=== PATIENT | male | born 1940 | race Caucasian/White ===

== ENCOUNTER 2020-07-02 08:34 | Outpatient (CLI) | payer MEDICARE, MEDICAID ==
[~2020-07-02 08:34] MED LIST: NOR5T PO; NORCO10T PO; TELM80TA9 PO
== END 2020-07-02 09:16 | disposition home or self-care (01) ==
LOC: WOUND CARE 08:34 → EDSTATUS 09:00 → WOUND CARE 09:16
PROVIDERS: ATTEND Nurse Practitioner
DX: L98.491 Non-pressure chronic ulcer of skin of other sites limited to breakdown of skin (principal); L03.115 Cellulitis of right lower limb; L03.116 Cellulitis of left lower limb; I48.19 Other persistent atrial fibrillation; M19.90 Unspecified osteoarthritis, unspecified site; M86.9 Osteomyelitis, unspecified; I12.9 Hypertensive chronic kidney disease with stage 1 through stage 4 chronic kidney disease, or unspecified chronic kidney disease; N18.9 Chronic kidney disease, unspecified; E87.1 Hypo-osmolality and hyponatremia; M86.8X7 Other osteomyelitis, ankle and foot; E66.9 Obesity, unspecified; Z68.44 Body mass index [BMI] 60.0-69.9, adult
CPT/HCPCS: G0463

== ENCOUNTER 2020-07-08 12:05 | Outpatient (CLI) | payer MEDICARE, MEDICAID | END 2020-07-08 14:36 | disposition home or self-care (01) | LOC: WOUND CARE 12:05 | PROVIDERS: ATTEND Nurse Practitioner | DX: L98.491 Non-pressure chronic ulcer of skin of other sites limited to breakdown of skin (principal); L03.115 Cellulitis of right lower limb; L03.116 Cellulitis of left lower limb; I48.19 Other persistent atrial fibrillation; M19.90 Unspecified osteoarthritis, unspecified site; M86.9 Osteomyelitis, unspecified; I12.9 Hypertensive chronic kidney disease with stage 1 through stage 4 chronic kidney disease, or unspecified chronic kidney disease; N18.9 Chronic kidney disease, unspecified; E87.1 Hypo-osmolality and hyponatremia; M86.8X7 Other osteomyelitis, ankle and foot; E66.9 Obesity, unspecified; Z68.44 Body mass index [BMI] 60.0-69.9, adult | CPT/HCPCS: 93922; 93925; G0463 ==

== ENCOUNTER 2020-07-17 10:22 | Outpatient (CLI) | payer MEDICARE, MEDICAID | END 2020-07-17 11:57 | disposition home or self-care (01) | LOC: WOUND CARE 10:22 | PROVIDERS: ATTEND Nurse Practitioner | DX: L03.116 Cellulitis of left lower limb (principal); L03.115 Cellulitis of right lower limb; L98.491 Non-pressure chronic ulcer of skin of other sites limited to breakdown of skin; I48.19 Other persistent atrial fibrillation; M19.90 Unspecified osteoarthritis, unspecified site; I12.9 Hypertensive chronic kidney disease with stage 1 through stage 4 chronic kidney disease, or unspecified chronic kidney disease; N18.9 Chronic kidney disease, unspecified; E87.1 Hypo-osmolality and hyponatremia; M86.8X7 Other osteomyelitis, ankle and foot; E66.9 Obesity, unspecified; Z68.44 Body mass index [BMI] 60.0-69.9, adult | CPT/HCPCS: 93970; G0463 ==

== ENCOUNTER → 2020-07-18 | Day surgery (SDC) | payer MEDICARE, MEDICAID | END | disposition home or self-care (01) | LOC: WOUND CARE 11:40 | PROVIDERS: ATTEND Nurse Practitioner | DX: L98.491 Non-pressure chronic ulcer of skin of other sites limited to breakdown of skin (principal); L03.115 Cellulitis of right lower limb; L03.116 Cellulitis of left lower limb; I48.19 Other persistent atrial fibrillation; M19.90 Unspecified osteoarthritis, unspecified site; M86.9 Osteomyelitis, unspecified; I12.9 Hypertensive chronic kidney disease with stage 1 through stage 4 chronic kidney disease, or unspecified chronic kidney disease; N18.9 Chronic kidney disease, unspecified; E87.1 Hypo-osmolality and hyponatremia; M86.8X7 Other osteomyelitis, ankle and foot; E66.9 Obesity, unspecified; Z68.44 Body mass index [BMI] 60.0-69.9, adult | CPT/HCPCS: G0463 ==

== ENCOUNTER 2020-07-24 10:43 | Outpatient (CLI) | payer MEDICARE, MEDICAID | END 2020-07-24 11:26 | disposition home or self-care (01) | LOC: WOUND CARE 10:43 | PROVIDERS: ATTEND Nurse Practitioner | DX: L03.116 Cellulitis of left lower limb (principal); L03.115 Cellulitis of right lower limb; L98.491 Non-pressure chronic ulcer of skin of other sites limited to breakdown of skin; I48.19 Other persistent atrial fibrillation; M19.90 Unspecified osteoarthritis, unspecified site; I12.9 Hypertensive chronic kidney disease with stage 1 through stage 4 chronic kidney disease, or unspecified chronic kidney disease; N18.9 Chronic kidney disease, unspecified; E87.1 Hypo-osmolality and hyponatremia; M86.8X7 Other osteomyelitis, ankle and foot; E66.9 Obesity, unspecified; Z68.44 Body mass index [BMI] 60.0-69.9, adult | CPT/HCPCS: G0463 ==

== ENCOUNTER 2020-08-22 12:11 | Outpatient (CLI) | payer MEDICARE, MEDICAID | END 2020-08-22 13:00 | disposition home or self-care (01) | LOC: WOUND CARE 12:11 | PROVIDERS: ATTEND Nurse Practitioner | DX: L03.116 Cellulitis of left lower limb (principal); L03.115 Cellulitis of right lower limb; L98.491 Non-pressure chronic ulcer of skin of other sites limited to breakdown of skin; I48.19 Other persistent atrial fibrillation; M19.90 Unspecified osteoarthritis, unspecified site; I12.9 Hypertensive chronic kidney disease with stage 1 through stage 4 chronic kidney disease, or unspecified chronic kidney disease; N18.9 Chronic kidney disease, unspecified; E87.1 Hypo-osmolality and hyponatremia; M86.8X7 Other osteomyelitis, ankle and foot; E66.9 Obesity, unspecified; Z68.44 Body mass index [BMI] 60.0-69.9, adult | CPT/HCPCS: G0463 ==

== ENCOUNTER 2025-05-17 13:40 | Outpatient (CLI) | payer MEDICARE, MEDICAID ==
[~2025-05-17 13:40] MED LIST changes: +FURO-150 PO; +LEVO25TA7 PO; +METO25TA6 PO
--- NOTE | 2025-05-17 15:12 | VASCULAR REPORT ---
Bilateral lower extremity venous duplex Clinical History: Comparison: None Technique: Duplex Doppler evaluation of the deep venous systems of both lower extremities from the common femora l veins to the popliteal veins including color Doppler and spectral/pulsed waveform analysis was perf ormed. Findings: RIGHT SIDE: The common femoral vein demonstrates appropriate compressibility and waveform variability. There is compressibility/patency of the great saphenous vein at the proximal thigh. The femoral vein demonstrates appropriate compressibility and waveform variability. The deep femoral vein demonstrates appropriate compressibility and waveform variability. The popliteal vein demonstrates appropriate compressibility and waveform variability. There is normal compressibility at the tibioperoneal trunk. LEFT SIDE: The common femoral vein demonstrates appropriate compressibility and waveform variability. There is compressibility/patency of the great saphenous vein at the proximal thigh. The femoral vein demonstrates appropriate compressibility and waveform variability. The deep femoral vein demonstrates appropriate compressibility and waveform variability. The popliteal vein demonstrates appropriate compressibility and waveform variability. There is normal compressibility at the tibioperoneal trunk. Impression: No right or left femoropopliteal venous thrombosis.
== END 2025-05-17 23:59 | disposition home or self-care (01) ==
LOC: VAS 13:40
PROVIDERS: ATTEND Family Medicine
DX: M79.89 Other specified soft tissue disorders (principal)
CPT/HCPCS: 93970

== ENCOUNTER 2025-06-07 12:30 | Emergency (ER) | payer MEDICARE, MEDICAID ==
[~2025-06-07] VITALS: Ht 160 cm; Wt 101.3 kg
--- NOTE | 2025-06-07 12:56 | ELECTROCARDIOGRAPH REPORT ---
[facility] Test Date: 2025-06-07 Test Time: 12:55:10 Pat Name: MYNOR MITCHELL Department: EMERGENCY ROOM Patient ID: [id number] Room: Gender: M Fiber Optic Technician: ARCHIE : 1940 Requested By: NIKKI NEIL Order Number: [id number] Reading MD: Dr. Sean Dia Measurements Intervals [place] Rate: 83 P: 0 OK: 144 QRS: 30 QRSD: 88 T: 37 QT: 429 QTc: 505 Interpretive Statements Atrial-paced complexes Ventricular premature complex Prolonged QT interval Electronically Signed On 06-08-2025 19:28:[address] Sean Dia Please click the below link to view image of tracing.
--- NOTE | 2025-06-07 13:22 | Physician Documentation ---
History of Present Illness ~ Chief Complaint: Leg Laceration Stated Complaint: LEG LAC Time Seen by MD: 13:09 Primary Medical Doctor: sandrine Source: patient, family Mode of Arrival: POV Exam Limitations: no limitations HPI Patient who was getting out of the car and caught the edge of the car door on his left andrews. Here with a laceration. Unknown last tetanus shot. Tetanus Within 5 Years: Yes Medication Reconciliation Allergies: Coded Allergies: No Known Allergies (Unverified , 01/27/25) Scheduled Amlodipine Besylate (Amlodipine Besylate), 5 MG PO BID Furosemide (Lasix), 20 MG PO BID Hydrocodone Bit/Acetaminophen 10/325 MG* ([place] 10/325 MG*), 1 TAB PO PRN, (Reported) Levothyroxine Sodium (Levothyroxine Sodium), 1 TAB PO QAM Metoprolol Tartrate (Metoprolol Tartrate), 1 TAB PO BID Telmisartan (Telmisartan), 1 TAB PO DAILY Past Medical History Past Medical History: Atrial Fibrillation, Hypertension, Cellulitis Past Surgical History: orthopedic surgeries, other Alcohol Use: Occasionally Drug Use: none Lives In: Home Review of Systems All Other Systems at this time: Reviewed and Negative Physical Exam Vital Signs: Temperature: 98.0, Source: Temporal, Heart Rate: 80, Respiratory Rate: 12, BP: 159/92, Pulse Oximetry: 92, Weight: 101.300 Oxygen Flow Rate: 0 General Appearance: alert, WD/WN Cardiovascular: regular rate, rhythm, no murmur Respiratory: normal breath sounds Extremities Left andrews: 1 cm abrasion wound with a skin removed Skin: normal color, warm/dry Neurologic: oriented x4, memory intact Psychiatric: normal mood/affect Progress Progress Note Patient with of wound where the skin was essentially removed versus a laceration. Nothing to repair. Wound was cleansed and covered. This will heal by secondary intention. He is to wash it daily and then dry and cover. Return if new or worsening symptoms or sign of infection. Tdap given in the ED. Results/Orders Results/Orders Completed Orders - NIKKI NEIL MD Electrocardiogram (06/07/25 12:37) Tetanus/Pertuss/Diph Acell/Pf (Boostrix (06/07/25 13:20) Medications Received in ER Medications (Trade) Dose Ordered Sig/Marvin Route PRN Reason Start Time Stop Time Status Last Admin Dose Admin (Boostrix vaccine syringe) 0.5 ml ONCE ONCE IMVAC 06/07/25 13:20 06/07/25 13:21 DC 06/07/25 13:32 0.5 ML Vital Signs 06/07/25 06/07/25 12:41 13:45 Temp 98.0 98.0 Pulse 80 89 Resp 12 16 B/P (MAP) 159/92 121/74 Pulse Ox 92 96 O2 Flow Rate 0 Departure Impression: Primary Impression: Laceration of left leg Qualified Codes: S81.812A - Laceration without foreign body, left lower leg, initial encounter Condition: Stable Additional Instructions: Cleanse the wound daily with warm soapy water. Wait until it is dry and then cover it to keep it clean. Follow up if any sign of infection. Referrals: NO PRIMARY CARE PROVIDER (PCP) Education Educated: Patient, Family Educated regarding: diagnosis, treatment, need for follow up Signature Scribe Signature: no scribe used Attestation: no scribe used NIKKI NEIL MD Jun 07, 2025 13:22
[2025-06-07] MEDS: TETanus/Pertussis (Acell)/Diphther VAC/PF (Tdap-Adult) 0.5ml syringe IMVAC ONE (13:32)
[2025-06-07 13:45] VITALS: BP 121/74; PULSE 89; RESP 16; TEMP 98; O2SAT 96
== END 2025-06-07 13:51 | disposition home or self-care (01) ==
LOC: ER 12:30
DX: S81.812A Laceration without foreign body, left lower leg, initial encounter (principal); I10 Essential (primary) hypertension; I48.91 Unspecified atrial fibrillation; W23.0XXA Caught, crushed, jammed, or pinched between moving objects, initial encounter; Y93.89 Activity, other specified; Y92.89 Other specified places as the place of occurrence of the external cause; Y99.8 Other external cause status
CPT/HCPCS: 90715; 93005; 99283; A6402; A6446; A6449; G0008; 90471

== ENCOUNTER 2025-09-30 12:07 | Emergency (ER) | payer MEDICARE, MEDICAID ==
[~2025-09-30] VITALS: Ht 167.6 cm; Wt 90.0 kg
[2025-09-30 12:12] VITALS: TEMP 98.4
[2025-09-30 13:06] VITALS: O2SAT 95
[2025-09-30 15:17] LABS: MEAN PLATELET VOLUME 7.7 FL (7.4-10.4); RED CELL DISTRIBUTION WIDTH 18.5 % (11.5-14.5)
[2025-09-30 15:21] LABS: CREATININE 1.14 MG/DL (0.60-1.10); TOTAL CARBON DIOXIDE 24.0 MMOL/L (24-32); eCRCL 44 ML/MIN; eGFR 61 ML/MIN
--- NOTE | 2025-09-30 15:29 | Physician Documentation ---
History of Present Illness ~ Chief Complaint: Catheter Problem Stated Complaint: CATHETER ISSUES Time Seen by MD: 13:11 Primary Medical Doctor: sandrine Mode of Arrival: EMS, Stretcher HPI Patient referred to the emergency department for evaluation of Gordon catheter. Presents to the emergency department with Gordon catheter in place yet no leg bag. Patient reports that he does not want the catheter in place yet his obvious suprapubic distention. He has been no reported fever or nausea or vomiting. He has secondary complaint of lower leg discomfort. Patient was a resident of [facility]. Apparently he was just discharged in his referral to the emergency department in his by it the home health care worker? Patient is adamant about not requiring the catheter and reports that it was just placed. His story seems to be reliable as we have contacted [facility]. The facility does report that they do have the ability to catheterize yet patient was just recently discharged. 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 Medication Reconciliation Allergies: Coded Allergies: No Known Allergies (Unverified , 01/27/25) Scheduled Amlodipine Besylate (Amlodipine Besylate), 5 MG PO BID Furosemide (Lasix), 20 MG PO BID Hydrocodone Bit/Acetaminophen 10/325 MG* ([place] 10/325 MG*), 1 TAB PO PRN, (Reported) Levothyroxine Sodium (Levothyroxine Sodium), 1 TAB PO QAM Metoprolol Tartrate (Metoprolol Tartrate), 1 TAB PO BID Telmisartan (Telmisartan), 1 TAB PO DAILY Past Medical History Past Medical History: Atrial Fibrillation, Hypertension, Cellulitis Past Surgical History: orthopedic surgeries, other Alcohol Use: Occasionally Drug Use: none Lives with: Other Lives In: Home Review of Systems All Other Systems at this time: Reviewed and Negative Genitourinary: Reports: incontinence, decreased urine output, urgency Physical Exam Vital Signs: RN Vital Signs have been reviewed: Yes, Temperature: 98.4, Source: Oral, Heart Rate: 101, Respiratory Rate: 16, BP: 157/77, Pulse Oximetry: 95, Weight: 90.000 Oxygen Flow Rate: 0 General Appearance: alert, WD/WN, mild distress Progress Results/Orders Results/Orders Completed Orders - ARIA NICHOLSON PAC Cbc/Diff (09/30/25 14:30) BMP (09/30/25 14:30) Acetaminophen 325mg Tablet (Tylenol Tabl (09/30/25 15:15) Ua With Microscopic (09/30/25 15:06) Vital Signs 09/30/25 09/30/25 09/30/25 09/30/25 12:12 13:06 13:19 16:41 Temp 98.4 Pulse 82 101 93 Resp 15 16 16 16 B/P (MAP) 140/82 157/77 (103) 146/74 Pulse Ox 95 95 O2 Flow Rate 0 Laboratory Tests Test 09/30/25 14:53 09/30/25 15:06 White Blood Count 8.2 Red Blood Count 4.45 L Hemoglobin 13.6 L Hematocrit 42.9 Mean Corpuscular Volume 96.3 Mean Corpuscular Hemoglobin 30.5 Mean Corpuscular Hemoglobin Concent 31.7 L Red Cell Distribution Width 18.5 H Platelet Count 327 Mean Platelet Volume 7.7 Neutrophils (%) (Auto) 70.7 Lymphocytes (%) (Auto) 17.8 L Monocytes (%) (Auto) 7.9 Eosinophils (%) (Auto) 2.7 Basophils (%) (Auto) 0.9 Neutrophils # (Auto) 5.8 Lymphocytes # (Auto) 1.5 Monocytes # (Auto) 0.6 Eosinophils # (Auto) 0.2 Basophils # (Auto) 0.1 CBC Comment Sodium Level 144 Potassium Level 3.9 Chloride Level 108 H Carbon Dioxide Level 24.0 Anion Gap 12 Blood Urea Nitrogen 24 H Creatinine 1.14 H Estimated GFR/1.73 m2 61 BUN/Creatinine Ratio 21.1 H Glucose Level 106 H Calcium Level 8.6 Albumin 2.9 L Chemistry Comments Urine Specimen Description Urinal Urine Color Brown Urine Clarity Cloudy Urine pH Urine Specific [place] Urine Protein Urine Glucose (UA) Urine Ketones Urine Occult Blood Urine Nitrite Urine Bilirubin Urine Urobilinogen Urine Leukocyte Esterase Urine RBC Tntc Urine WBC Tntc H Urine WBC Clumps Moderate Urine Squamous Epithelial Cells Few Urine Bacteria 2+ Urine Mucus None seen Volume Urine Centrifuged 10 ml Urine Comment See note Medical Decision Making Additional information obtaine: old records Findings Patient is seen and evaluated in room six. There is a Gordon catheter in place that is not draining and initial bladder scan shows over 500 mils. Patient is seems to be leaking around the catheter. The catheter was removed and the patient continues to void (incontinent) without difficulty. Repleted bladder scan does confirm your complete emptying the bladder. He again is adamant about not having the Gordon catheter placed and wishes to trial outpatient without it. He has a care plan in place for the remainder of his health care and patient is seemingly is safe for discharge to his home in his sole conditioner. Strict instructions to return to the emergency department for urine retention, lower abdominal discomfort or as needed. Urinary Diff Dx:Considerations: Include: AAA, Aortic dissection, Appendicitis, Appendicitis train, Bowel obstruction, Bladder outlet obstruc., Cholelithiasis, Choleangitis, Cholecystitis, DJD, Epididymitis, Hepatitis, HNP, Impaction, Musculoskeletal pain, Pancreatitis, Postoperative Comp., Prostatitis, Pyelonephritis, Renal failure, Renal infarction, Strain, Urolithiasis, Urinary Obstruction, Urethritis, Urinary retention, UTI, Other Genital Diff Dx:Considerations: Include: Other (non contributory) Departure Disposition: HOME / SELF CARE / HOMELESS Impression: Primary Impression: BPH with obstructive uropathy Additional Impression: UTI (urinary tract infection) Qualified Codes: N30.01 - Acute cystitis with hematuria Condition: Improved Discharge Instructions: Indwelling Urinary Catheter Care, Adult Additional Instructions: 1. You have elected to have your Gordon catheter removed and replaced unless needed. 2. With spoken with your facility who has the capabilities of reinserted in the event that you were unable to void. 3. While in the emergency department you have been able to void without difficulty which was validated with bladder skin 4. You received breakthrough pain medicine for your acute on chronic neck pain 5. Labs were obtained and are reassuring. Please make follow up appointment with your primary care physician in urologist. Thank you for visiting emergency department of [facility]. Referrals: NO PRIMARY CARE PROVIDER (PCP) Prescriptions Cephalexin*Monohydrate* (Keflex*) 500 Mg Capsule 1 CAP PO TID, #21 CAP Prov: ARIA NICHOLSON PAC 10/01/25 Education Educated: Patient Educated regarding: diagnosis, treatment, prognosis, need for follow up ARIA NICHOLSON PAC Sep 30, 2025 15:29
[2025-09-30 15:40] LABS: UA COLLECTION TYPE URINAL
[2025-09-30 15:41] LABS: MUCUS STRANDS NONE SEEN /LPF (Neg); SQUAMOUS EPITHELIAL CELL,UR FEW /LPF (FEW); WBC CLUMPS,URINE MODERATE /HPF (NEGATIVE)
[2025-09-30 16:41] VITALS: BP 146/74; PULSE 93; RESP 16
[2025-10-01] MEDS ORDERED: CEPH-585 PO (19:37)
== END 2025-09-30 16:45 | disposition home or self-care (01) ==
LOC: ER 12:08
DX: N40.1 Benign prostatic hyperplasia with lower urinary tract symptoms (principal); N39.0 Urinary tract infection, site not specified; I48.91 Unspecified atrial fibrillation; I10 Essential (primary) hypertension; Z79.899 Other long term (current) drug therapy; Z72.89 Other problems related to lifestyle; Z98.890 Other specified postprocedural states
CPT/HCPCS: 36415; 51798; 80048; 81001; 85025; 99284; A6449; A6446